=== PATIENT | female | born 1990 | race Caucasian/White ===

== ENCOUNTER 2018-09-16 14:27 | Emergency (ER) | payer OTHER, SELFPAY ==
[2018-09-16 14:36] VITALS: BP 112/72; PULSE 88; RESP 17; TEMP 36.1; O2SAT 94
--- NOTE | 2018-09-16 16:08 | ED.PSYCH ---
HPI - Psych General Chief Complaint: Psychiatric Symptoms Stated Complaint: doctor sent for mental health Time Seen by Provider: 09/16/18 16:05 Source: patient, family () and old records reviewed Mode of arrival: ambulatory Limitations: no limitations History of Present Illness HPI Narrative: This is a 28-year-old female who comes to the emergency department with complaint of depression and suicidal ideation. Patient states she has had depression with her 2 prior pregnancies, she is months with her 3rd . She had C-sections with L3. With the prior to she was on Zoloft which was helpful. She has not been taking Zoloft. Patient states she noticed the symptoms started about 3 weeks ago slowly worsening and then realized that that was what was happening to her. She has had thoughts of killing herself. Her has a firearm in the and she thought about shooting herself. He has disassembled the firearm which she states she is not capable of her is stumbling. Patient states she does not have any thoughts or wish to harm others including her children, or . Patient states that she thought about restarting the Zoloft but was not sure if there is any issues or contraindications. They did try to get a same-day appointment today on the [facility] but were unsuccessful. Patient has only been sleeping about 4 hours nightly. She states she tends to get insomnia with her depression. She states otherwise she was getting okay sleep before. She is breast feeding and states that this has been going well. She denies other medical issues. She denies surgeries other than her . She followed with her primary care before for her depression. She never has been hospitalized, she has not seen a counselor in the past. She is here attempt to get assistance. She does not feel that she needs hospitalization, she feels safe when she is present with her . Her states that he can have the farm removed from the home as well. Related Data Home Medications Medication Instructions Recorded Confirmed No Known Home Medications 09/16/18 09/16/18 Allergies Allergy/AdvReac Type Severity Reaction Status Date / Time Penicillins Allergy Anaphylaxis Verified 09/16/18 14:36 Review of Systems Review of Systems ROS Unobtainable: All systems reviewed & are unremarkable except as noted in HPI and below Constitutional Denies chills, Denies fever(s), Denies lethargy and Denies weakness Cardiovascular Denies chest pain and Denies dyspnea Respiratory Denies dyspnea Gastrointestinal Gastrointestinal: Denies abdominal pain, Denies change in bowel habits, Denies diarrhea, Denies nausea and Denies vomiting Integumentary/Breasts Denies rash Neurologic Reports behavioral changes, Denies confusion and Denies weakness Psychiatric Reports as per HPI, Reports abnormal sleep pattern, Reports behavioral changes, Denies confusion, Reports depression, Denies panic attacks, Denies paranoia, Denies visual hallucinations, Denies hallucinations, Denies homicidal ideation and Reports suicidal ideation [facility] Medical History (Updated 09/16/18 @ 17:59 by Joleen Ramos DO) depression (Chronic) Single delivery by (Chronic) Social History marital status: household members: spouse and children lives independently: Yes caregiver/support person: No firearms in home: Yes Smoking Status: Never smoker Social History marital status: household members: spouse and children lives independently: Yes caregiver/support person: No firearms in home: Yes Smoking Status: Never smoker Exam Narrative Exam Narrative: GENERAL: Alert and oriented x three, well-nourished, well-appearing female in no acute distress. HEENT: Head normocephalic, atraumatic, EOMI, pupils reactive, face symmetric, moist mucous membranes NECK: Supple, full range of motion CARDIOVASCULAR: Regular rate and rhythm without murmurs, rubs or gallops. RESPIRATORY: Breath sounds equal bilaterally, no wheezes rales or rhonchi. ABDOMEN: Soft, nontender. Normoactive bowel sounds all 4 quadrants. No guarding or rebound, rigidity, no mass : No CVA tenderness EXTREMITIES: Normal range of motion, no clubbing or edema. Neurovascularly intact NEUROLOGICAL: Cranial nerves II through XII grossly intact. Moving all extremities SKIN: Warm, dry, no petechiae, no rashes or lesions. PSYCH: Depression, denies suicidal intent but positive for suicidal ideation, denies homicidal intent or ideation. Denies hallucinations. Initial Vital Signs Initial Vital Signs: Vital Signs Temperature 96.9 F L 09/16/18 14:36 Pulse Rate 88 09/16/18 14:36 Respiratory Rate 17 09/16/18 14:36 Blood Pressure 112/72 09/16/18 14:36 Pulse Oximetry 94 09/16/18 14:36 Course Orders Ordered: ED Orders 09/16/18 16:00 Urine Drug Screen, Rapid Stat 09/16/18 16:36 Complete Blood Count AUTO DIFF Stat Comprehensive Metabolic Panel Stat Ethanol (ETOH) Stat Thyroid Stimulating Hormone Stat Vital Signs - 8 hr 09/16/18 14:36 09/16/18 18:11 Temperature 96.9 F L Pulse Rate 88 84 Respiratory Rate 17 16 Blood Pressure 112/72 Blood Pressure [Right Arm] 111/73 Pulse Oximetry 94 99 MDM - Psych Lab Data Attestation: I reviewed the patient's lab results. Result diagrams: 09/16/18 16:36 09/16/18 16:36 Lab Results 09/16/18 09/16/18 09/16/18 Range/Units 16:00 16:36 16:36 WBC 4.8 (4.5-11.0) X10^3/uL RBC 4.71 (4.0-5.2) X10^6/uL Hgb 11.8 L (12.0-16.0) g/dL Hct 36.1 (36-46) % MCV 76.7 L (80-100) fL MCH 25.1 L (26-34) PG MCHC 32.7 (30-36) % RDW 16.7 H (11.6-14.8) % Plt Count 161 (150-400) X10^3/uL Neut % (Auto) 53.6 (50-75) % Lymph % (Auto) 35.5 (25-40) % [place] % (Auto) 8.0 (3-14) % Eos % (Auto) 2.3 (2-4) % Baso % (Auto) 0.6 (0-2) % Neut # (Auto) 2600 (2116-5958) /uL Lymph # (Auto) 1700 (3931-3971) /uL [place] # (Auto) 400 (0-900) /uL Eos # (Auto) 100 (0-450) /uL Baso # (Auto) 0 (0-100) /uL Sodium 142 (137-145) mmol/L Potassium 4.1 (3.4-5.1) mmol/L Chloride 108 H (98-107) mmol/L Carbon Dioxide 26 (22-32) mmol/L BUN 13 (7-17) mg/dL Creatinine 0.70 (0.52-1.04) mg/dL Estimated GFR > 60.0 (>60) mL/min BUN/Creatinine Ratio 18.6 (6-22) Glucose 70 (70-100) mg/dL Calcium 8.7 (8.4-10.2) mg/dL Total Bilirubin 0.4 (0.2-1.3) mg/dL AST 36 (14-36) IU/L ALT 34 (9-52) IU/L Alkaline Phosphatase 81 (38-126) U/L Total Protein 7.0 (6.3-8.2) g/dL Albumin 4.0 (3.5-5.0) g/dL Globulin 3.0 (1.7-4.1) g/dL Albumin/Globulin Ratio 1.3 (1.0-2.8) TSH (0.47-4.68) uIU/mL Urine Opiates Screen Negative (Negative) Ur Oxycodone Screen Negative (Negative) Urine Methadone Screen Negative (Negative) Ur Barbiturates Screen Negative (Negative) U Tricyclic Antidepress Negative (Negative) Ur Phencyclidine Scrn Negative (Negative) Ur Amphetamines Screen Negative (Negative) U Methamphetamines Scrn Negative (Negative) Ur MDMA Scrn (Ecstasy) Negative (Negative) U Benzodiazepines Scrn Negative (Negative) Urine Cocaine Screen Negative (Negative) U Marijuana (THC) Screen Negative (Negative) Ethyl Alcohol < 10 mg/dL 09/16/18 Range/Units 16:36 WBC (4.5-11.0) X10^3/uL RBC (4.0-5.2) X10^6/uL Hgb (12.0-16.0) g/dL Hct (36-46) % MCV (80-100) fL MCH (26-34) PG MCHC (30-36) % RDW (11.6-14.8) % Plt Count (150-400) X10^3/uL Neut % (Auto) (50-75) % Lymph % (Auto) (25-40) % [place] % (Auto) (3-14) % Eos % (Auto) (2-4) % Baso % (Auto) (0-2) % Neut # (Auto) (7856-1276) /uL Lymph # (Auto) (6597-6671) /uL [place] # (Auto) (0-900) /uL Eos # (Auto) (0-450) /uL Baso # (Auto) (0-100) /uL Sodium (137-145) mmol/L Potassium (3.4-5.1) mmol/L Chloride (98-107) mmol/L Carbon Dioxide (22-32) mmol/L BUN (7-17) mg/dL Creatinine (0.52-1.04) mg/dL Estimated GFR (>60) mL/min BUN/Creatinine Ratio (6-22) Glucose (70-100) mg/dL Calcium (8.4-10.2) mg/dL Total Bilirubin (0.2-1.3) mg/dL AST (14-36) IU/L ALT (9-52) IU/L Alkaline Phosphatase (38-126) U/L Total Protein (6.3-8.2) g/dL Albumin (3.5-5.0) g/dL Globulin (1.7-4.1) g/dL Albumin/Globulin Ratio (1.0-2.8) TSH 2.63 (0.47-4.68) uIU/mL Urine Opiates Screen (Negative) Ur Oxycodone Screen (Negative) Urine Methadone Screen (Negative) Ur Barbiturates Screen (Negative) U Tricyclic Antidepress (Negative) Ur Phencyclidine Scrn (Negative) Ur Amphetamines Screen (Negative) U Methamphetamines Scrn (Negative) Ur MDMA Scrn (Ecstasy) (Negative) U Benzodiazepines Scrn (Negative) Urine Cocaine Screen (Negative) U Marijuana (THC) Screen (Negative) Ethyl Alcohol mg/dL Point of Care Testing Test Results Negative Urine Dip Bedside Urine Glucose Negative Bedside Urine Bilirubin - Negative Bedside Urine Ketone - Negative Urine Specific [place] 1.030 Bedside Urine Occult Blood - Negative Bedside Urine pH 6 Bedside Urine Protein +/- 15 Bedside Urine Urobilinogen - Negative Bedside Urine Nitrite - Negative Bedside Urine Leukocytes - Negative Esterase MDM Narrative Medical decision making narrative: Patient is feeling better after spending time in the department. She is not having any current suicidal ideation or homicidal and feels safe to return home. She contracts for safety. also feels comfortable with her returning home. He will have the firearm removed tonight to another location outside the home. Patient set up appointment with [facility] at 10:30am tomorrow. She has plenty of zoloft at home and will start today at her normal dose, she states that she did not have to titrate up. Discharge Plan Departure Patient Disposition: Home Clinical Impression: Depression, , Suicidal ideation Instructions: DI for Depression Activity Restrictions/Additional Instructions: Follow-up in the next 24 hours either with your primary care or with [facility]. Appointment is at 1030am, they will contact you tomorrow. Start your Zoloft at your regular dosage, take 1 tablet daily. If you feel unsafe, if you feel that you are danger to herself, others if you are having recurrent thoughts of hurting herself or intent of hurting herself, hallucinations, worsening symptoms call 911 in or return immediately to the ER. If you're feeling suicidal or having suicidal thoughts, contact the suicide hotline, this is also the number for [facility] and they can do a next day appointment as well as have additional resources for mental health. . Prescriptions: No Action No Known Home Medications RF: 0 Referrals: Kannan Ordoñez MD [Physician] -
--- NOTE | 2018-09-16 16:19 | ED_ITS ---
HPI - Psych General Chief Complaint: Psychiatric Symptoms Stated Complaint: doctor sent for mental health Time Seen by Provider: 09/16/18 16:05 Source: patient, family () and old records reviewed Mode of arrival: ambulatory Limitations: no limitations History of Present Illness HPI Narrative: This is a 28-year-old female who comes to the emergency department with complaint of depression and suicidal ideation. Patient states she has had depression with her 2 prior pregnancies, she is months with her 3rd . She had C-sections with L3. With the prior to she was on Zoloft which was helpful. She has not been taking Zoloft. Patient states she noticed the symptoms started about 3 weeks ago slowly worsening and then realized that that was what was happening to her. She has had thoughts of killing herself. Her has a firearm in the and she thought about shooting herself. He has disassembled the firearm which she states she is not capable of her is stumbling. Patient states she does not have any thoughts or wish to harm others including her children, or . Patient states that she thought about restarting the Zoloft but was not sure if there is any issues or contraindications. They did try to get a same-day appointment today on the [facility] but were unsuccessful. Patient has only been sleeping about 4 hours nightly. She states she tends to get insomnia with her depression. She states otherwise she was getting okay sleep before. She is breast feeding and states that this has been going well. She denies other medical issues. She denies surgeries other than her . She followed with her primary care before for her depression. She never has been hospitalized, she has not seen a counselor in the past. She is here attempt to get assistance. She does not feel that she needs hospitalization, she feels safe when she is present with her . Her states that he can have the farm removed from the home as well. Related Data Home Medications Medication Instructions Recorded Confirmed No Known Home Medications 09/16/18 09/16/18 Allergies Allergy/AdvReac Type Severity Reaction Status Date / Time Penicillins Allergy Anaphylaxis Verified 09/16/18 14:36 Review of Systems Review of Systems ROS Unobtainable: All systems reviewed & are unremarkable except as noted in HPI and below Constitutional Denies chills, Denies fever(s), Denies lethargy and Denies weakness Cardiovascular Denies chest pain and Denies dyspnea Respiratory Denies dyspnea Gastrointestinal Gastrointestinal: Denies abdominal pain, Denies change in bowel habits, Denies diarrhea, Denies nausea and Denies vomiting Integumentary/Breasts Denies rash Neurologic Reports behavioral changes, Denies confusion and Denies weakness Psychiatric Reports as per HPI, Reports abnormal sleep pattern, Reports behavioral changes, Denies confusion, Reports depression, Denies panic attacks, Denies paranoia, Denies visual hallucinations, Denies hallucinations, Denies homicidal ideation and Reports suicidal ideation [facility] Medical History (Updated 09/16/18 @ 17:59 by Joleen Ramos DO) depression (Chronic) Single delivery by (Chronic) Social History marital status: household members: spouse and children lives independently: Yes caregiver/support person: No firearms in home: Yes Smoking Status: Never smoker Social History marital status: household members: spouse and children lives independently: Yes caregiver/support person: No firearms in home: Yes Smoking Status: Never smoker Exam Narrative Exam Narrative: GENERAL: Alert and oriented x three, well-nourished, well- appearing female in no acute distress. HEENT: Head normocephalic, atraumatic, EOMI, pupils reactive, face symmetric, m oist mucous membranes NECK: Supple, full range of motion CARDIOVASCULAR: Regular rate and rhythm without murmurs, rubs or gallops. RESPIRATORY: Breath sounds equal bilaterally, no wheezes rales or rhonchi. ABDOMEN: Soft, nontender. Normoactive bowel sounds all 4 quadrants. No guarding or rebound, rigidity, no mass : No CVA tenderness EXTREMITIES: Normal range of motion, no clubbing or edema. Neurovascularly intact NEUROLOGICAL: Cranial nerves II through XII grossly intact. Moving all extre mities SKIN: Warm, dry, no petechiae, no rashes or lesions. PSYCH: Depression, denies suicidal intent but positive for suicidal ideation, denies homicidal intent or ideation. Denies hallucinations. Initial Vital Signs Initial Vital Signs: Vital Signs Temperature 96.9 F L 09/16/18 14:36 Pulse Rate 88 09/16/18 14:36 Respiratory Rate 17 09/16/18 14:36 Blood Pressure 112/72 09/16/18 14:36 Pulse Oximetry 94 09/16/18 14:36 Course Orders Ordered: ED Orders 09/16/18 16:00 Urine Drug Screen, Rapid Stat 09/16/18 16:36 Complete Blood Count AUTO DIFF Stat Comprehensive Metabolic Panel Stat Ethanol (ETOH) Stat Thyroid Stimulating Hormone Stat Vital Signs - 8 hr 09/16/18 14:36 09/16/18 18:11 Temperature 96.9 F L Pulse Rate 88 84 Respiratory Rate 17 16 Blood Pressure 112/72 Blood Pressure [Right Arm] 111/73 Pulse Oximetry 94 99 MDM - Psych Lab Data Attestation: I reviewed the patient's lab results. Result diagrams: 09/16/18 16:36 09/16/18 16:36 Lab Results 09/16/18 09/16/18 09/16/18 Range/Units 16:00 16:36 16:36 WBC 4.8 (4.5-11.0) X10^3/uL RBC 4.71 (4.0-5.2) X10^6/uL Hgb 11.8 L (12.0-16.0) g/dL Hct 36.1 (36-46) % MCV 76.7 L (80-100) fL MCH 25.1 L (26-34) PG MCHC 32.7 (30-36) % RDW 16.7 H (11.6-14.8) % Plt Count 161 (150-400) X10^3/uL Neut % (Auto) 53.6 (50-75) % Lymph % (Auto) 35.5 (25-40) % [place] % (Auto) 8.0 (3-14) % Eos % (Auto) 2.3 (2-4) % Baso % (Auto) 0.6 (0-2) % Neut # (Auto) 2600 (8635-2240) /uL Lymph # (Auto) 1700 (3580-0666) /uL [place] # (Auto) 400 (0-900) /uL Eos # (Auto) 100 (0-450) /uL Baso # (Auto) 0 (0-100) /uL Sodium 142 (137-145) mmol/L Potassium 4.1 (3.4-5.1) mmol/L Chloride 108 H (98-107) mmol/L Carbon Dioxide 26 (22-32) mmol/L BUN 13 (7-17) mg/dL Creatinine 0.70 (0.52-1.04) mg/dL Estimated GFR > 60.0 (>60) mL/min BUN/Creatinine Ratio 18.6 (6-22) Glucose 70 (70-100) mg/dL Calcium 8.7 (8.4-10.2) mg/dL Total Bilirubin 0.4 (0.2-1.3) mg/dL AST 36 (14-36) IU/L ALT 34 (9-52) IU/L Alkaline Phosphatase 81 (38-126) U/L Total Protein 7.0 (6.3-8.2) g/dL Albumin 4.0 (3.5-5.0) g/dL Globulin 3.0 (1.7-4.1) g/dL Albumin/Globulin Ratio 1.3 (1.0-2.8) TSH (0.47-4.68) uIU/mL Urine Opiates Screen Negative (Negative) Ur Oxycodone Screen Negative (Negative) Urine Methadone Screen Negative (Negative) Ur Barbiturates Screen Negative (Negative) U Tricyclic Antidepress Negative (Negative) Ur Phencyclidine Scrn Negative (Negative) Ur Amphetamines Screen Negative (Negative) U Methamphetamines Scrn Negative (Negative) Ur MDMA Scrn (Ecstasy) Negative (Negative) U Benzodiazepines Scrn Negative (Negative) Urine Cocaine Screen Negative (Negative) U Marijuana (THC) Screen Negative (Negative) Ethyl Alcohol < 10 mg/dL 09/16/18 Range/Units 16:36 WBC (4.5-11.0) X10^3/uL RBC (4.0-5.2) X10^6/uL Hgb (12.0-16.0) g/dL Hct (36-46) % MCV (80-100) fL MCH (26-34) PG MCHC (30-36) % RDW (11.6-14.8) % Plt Count (150-400) X10^3/uL Neut % (Auto) (50-75) % Lymph % (Auto) (25-40) % [place] % (Auto) (3-14) % Eos % (Auto) (2-4) % Baso % (Auto) (0-2) % Neut # (Auto) (7420-2165) /uL Lymph # (Auto) (4516-1957) /uL [place] # (Auto) (0-900) /uL Eos # (Auto) (0-450) /uL Baso # (Auto) (0-100) /uL Sodium (137-145) mmol/L Potassium (3.4-5.1) mmol/L Chloride (98-107) mmol/L Carbon Dioxide (22-32) mmol/L BUN (7-17) mg/dL Creatinine (0.52-1.04) mg/dL Estimated GFR (>60) mL/min BUN/Creatinine Ratio (6-22) Glucose (70-100) mg/dL Calcium (8.4-10.2) mg/dL Total Bilirubin (0.2-1.3) mg/dL AST (14-36) IU/L ALT (9-52) IU/L Alkaline Phosphatase (38-126) U/L Total Protein (6.3-8.2) g/dL Albumin (3.5-5.0) g/dL Globulin (1.7-4.1) g/dL Albumin/Globulin Ratio (1.0-2.8) TSH 2.63 (0.47-4.68) uIU/mL Urine Opiates Screen (Negative) Ur Oxycodone Screen (Negative) Urine Methadone Screen (Negative) Ur Barbiturates Screen (Negative) U Tricyclic Antidepress (Negative) Ur Phencyclidine Scrn (Negative) Ur Amphetamines Screen (Negative) U Methamphetamines Scrn (Negative) Ur MDMA Scrn (Ecstasy) (Negative) U Benzodiazepines Scrn (Negative) Urine Cocaine Screen (Negative) U Marijuana (THC) Screen (Negative) Ethyl Alcohol mg/dL Point of Care Testing Test Results Negative Urine Dip Bedside Urine Glucose Negative Bedside Urine Bilirubin - Negative Bedside Urine Ketone - Negative Urine Specific [place] 1.030 Bedside Urine Occult Blood - Negative Bedside Urine pH 6 Bedside Urine Protein +/- 15 Bedside Urine Urobilinogen - Negative Bedside Urine Nitrite - Negative Bedside Urine Leukocytes - Negative Esterase MDM Narrative Medical decision making narrative: Patient is feeling better after spending time in the department. She is not having any current suicidal ideation or homicidal and feels safe to return home. She contracts for safety. also feels comfortable with her returning home. He will have the firearm removed tonight to another location outside the home. Patient set up appointment with [facility] at 10:30am tomorrow. She has plenty of zoloft at home and will start today at her normal dose, she states that she did not have to titrate up. Discharge Plan Departure Patient Disposition: Home Clinical Impression: Depression, , Suicidal ideation Instructions: DI for Depression Activity Restrictions/Additional Instructions: Follow-up in the next 24 hours either with your primary care or with [facility]. Appointment is at 1030am, they will contact you tomorrow. Start your Zoloft at your regular dosage, take 1 tablet daily. If you feel unsafe, if you feel that you are danger to herself, others if you are having recurrent thoughts of hurting herself or intent of hurting herself, hallucinations, worsening symptoms call 911 in or return immediately to the ER. If you're feeling suicidal or having suicidal thoughts, contact the suicide hotline, this is also the number for [facility] and they can do a next day appointment as well as have additional resources for mental health. . Prescriptions: No Action No Known Home Medications RF: 0 Referrals: Kannan Ordoñez MD [Physician] -
[2018-09-16 16:26] LABS: Urine Amphetamines Negative (Negative); Urine Barbiturates Negative (Negative); Urine Benzodiazepines Negative (Negative); Urine Cocaine Negative (Negative); Urine MDMA Negative (Negative); Urine Methadone Negative (Negative); Urine Methamphetamines Negative (Negative); Urine Morphine/Opi cutoff 2000 Negative (Negative); Urine Oxycodone Negative (Negative); Urine Phencyclidine Negative (Negative); Urine Tetrahydrocannabinol Negative (Negative); Urine Tricyclic Antidepressant Negative (Negative)
--- NOTE | 2018-09-16 16:39 | PC.NURSE ---
Pt is going to use breast pump.
[2018-09-16 16:46] LABS: Add Manual Diff / Slide Review NO; Basophils Absolute Auto 0 /uL (0-100); Basophils Percent Auto 0.6 % (0-2); Eosinophils Absolute Auto 100 /uL (0-450); Eosinophils Percent Auto 2.3 % (2-4); Hematocrit 36.1 % (36-46); Hemoglobin 11.8 g/dL (12.0-16.0); Lymphocytes Absolute Auto 1700 /uL (1100-4500); Lymphocytes Percent Auto 35.5 % (25-40); Mean Corpuscular HGB Conc 32.7 % (30-36); Mean Corpuscular Hemoglobin 25.1 PG (26-34); Mean Corpuscular Volume 76.7 fL (80-100); Monocytes Absolute Auto 400 /uL (0-900); Neutrophils Absolute Auto 2600 /uL (1500-7000); Neutrophils Percent Auto 53.6 % (50-75); Platelet Count 161 X10^3/uL (150-400); Red Blood Cell Count 4.71 X10^6/uL (4.0-5.2); Red Cell Distribution Width 16.7 % (11.6-14.8); White Blood Cell Count 4.8 X10^3/uL (4.5-11.0)
[2018-09-16 17:00] LABS: Alanine Aminotransferase 34 IU/L (9-52); Albumin Globulin Ratio 1.3 (1.0-2.8); Alkaline Phosphatase 81 U/L (38-126); Aspartate Aminotransferase 36 IU/L (14-36); BUN Creatinine Ratio 18.6 (6-22); Bilirubin Total 0.4 mg/dL (0.2-1.3); Blood Urea Nitrogen 13 mg/dL (7-17); Calcium 8.7 mg/dL (8.4-10.2); Carbon Dioxide 26 mmol/L (22-32); Chloride 108 mmol/L (98-107); Estimated Glomerular Filt Rate > 60.0 mL/min (>60); Ethanol (ETOH) < 10 mg/dL; Glucose 70 mg/dL (70-100); HEMOLYSIS < 15 (0-50); Potassium 4.1 mmol/L (3.4-5.1); Sodium 142 mmol/L (137-145)
[2018-09-16 17:35] LABS: Thyroid Stimulating Hormone 2.63 uIU/mL (0.47-4.68)
[2018-09-16 18:11] VITALS: BP 111/73; PULSE 84; RESP 16; O2SAT 99
--- NOTE | 2018-09-16 18:17 | PC.NURSE ---
[facility] appointment set-up for 10:30 am tomorrow.
== END 2018-09-16 18:35 | disposition home or self-care (01) ==
PROVIDERS: Emergency Provider Emergency Medicine
DX: F32.89 Other specified depressive episodes (principal); R45.851 Suicidal ideations
CPT/HCPCS: 36415; 80053; 80305; 80320; 81003; 81025; 84443; 85025; 99282; 99283

== ENCOUNTER 2020-06-14 19:48 | Emergency (ER) | payer OTHER, SELFPAY ==
[2020-06-14] VITALS (9 sets, daily range): BP systolic 127–140; BP diastolic 69–83; PULSE 85–107; RESP 15–19; TEMP 36.6; O2SAT 100; BMI 38.9
--- NOTE | 2020-06-14 19:58 | DI.RAD.S_ITS ---
PROCEDURE: XR CHEST 1V INDICATIONS: chest pain TECHNIQUE: One view of the chest was acquired. COMPARISON: None. FINDINGS: Surgical changes and devices: None. Lungs and pleura: There are few linear opacities in the lung bases likely representing atelectasis. No pleural effusions or pneumothorax. Mediastinum: Mediastinal contours appear normal. Heart size is normal. Bones and chest wall: No suspicious bony lesions. Overlying soft tissues appear unremarkable. IMPRESSION: 1. Linear opacities in lung bases likely represent atelectasis. No definite consolidation. Dictated by: Derrell Chin M.D. on 06/14/2020 at 20:54 Approved by: Derrell Chin M.D. on 06/14/2020 at 20:54
[2020-06-14 20:28] LABS: Add Manual Diff / Slide Review NO; Basophils Absolute Auto 100 /uL (0-100); Basophils Percent Auto 0.7 % (0-2); Eosinophils Absolute Auto 100 /uL (0-450); Eosinophils Percent Auto 1.5 % (2-4); Hematocrit 37.8 % (36-46); Hemoglobin 12.6 g/dL (12.0-16.0); Lymphocytes Absolute Auto 2300 /uL (1100-4500); Lymphocytes Percent Auto 30.5 % (25-40); Mean Corpuscular HGB Conc 33.2 % (30-36); Mean Corpuscular Hemoglobin 27.2 PG (26-34); Mean Corpuscular Volume 81.8 fL (80-100); Monocytes Absolute Auto 500 /uL (0-900); Monocytes Percent Auto 6.8 % (3-14); Neutrophils Absolute Auto 4500 /uL (1500-7000); Neutrophils Percent Auto 60.5 % (50-75); Platelet Count 197 X10^3/uL (150-400); Red Blood Cell Count 4.63 X10^6/uL (4.0-5.2); Red Cell Distribution Width 13.4 % (11.6-14.8); White Blood Cell Count 7.4 X10^3/uL (4.5-11.0)
[2020-06-14 20:29] LABS: INR 0.9 (0.9-1.3); Prothrombin Time 10.6 SECONDS (10.1-12.7)
[2020-06-14 20:31] LABS: PTT Partial Thromboplastin Tim 33 SECONDS (26.4-36.2)
[2020-06-14 20:33] LABS: Alanine Aminotransferase 20 IU/L (<35); Albumin 4.3 g/dL (3.5-5.0); Albumin Globulin Ratio 1.5 (1.0-2.8); Alkaline Phosphatase 58 U/L (38-126); Aspartate Aminotransferase 26 IU/L (14-36); BUN Creatinine Ratio 15.9 (6-22); Bilirubin Total 0.2 mg/dL (0.2-1.3); Blood Urea Nitrogen 11 mg/dL (7-17); Calcium 9.4 mg/dL (8.4-10.2); Carbon Dioxide 24 mmol/L (22-32); Chloride 105 mmol/L (98-107); Creatine Kinase 133 U/L (30-135); Estimated Glomerular Filt Rate > 60.0 mL/min (>60); Globulin 2.8 g/dL (1.7-4.1); Glucose 87 mg/dL (70-100); HEMOLYSIS < 15 (0-50); Lipase 118 U/L (23-300); Potassium 3.8 mmol/L (3.4-5.1); Sodium 138 mmol/L (137-145); Total Protein 7.1 g/dL (6.3-8.2)
--- NOTE | 2020-06-14 20:38 | ED_ITS ---
HPI - Chest Pain General Chief Complaint: Chest Pain Stated Complaint: chest pain, dizziness Time Seen by Provider: 06/14/20 20:27 Source: patient Mode of arrival: Ambulatory Limitations: no limitations History of Present Illness HPI narrative: The patient complains of dizziness, onset Thursday. The dizziness has been intermittent. She denies ear pain, or pressure. She has no sinus issues, no sore throat. She denies headache, she has no sore throat. She has no fever. She is now experiencing episodes of central sternal chest pain. She has no cardiac or respiratory history. She is a nonsmoker. She has no history of asthma or allergies. She has no nausea vomiting associated with the symptoms. She is not . She is on no prescription medications. She has no chronic medical problems. There is a family history of hypertension. Related Data Previous Rx's Medication Instructions Recorded meclizine 25 mg PO Q6H PRN #20 tab 06/14/20 Allergies Allergy/AdvReac Type Severity Reaction Status Date / Time Penicillins Allergy Anaphylaxis Verified 06/14/20 19:55 Review of Systems Constitutional Constitutional: Denies chills, Denies fever(s) and Denies weakness Eyes Eyes: Denies change in vision ENT Ears, Nose, Mouth, and Throat: Denies change in voice, Denies vertigo, Reports dizziness, Denies neck pain and Denies sore throat Cardiovascular Cardiovascular: Denies chest pain, Denies syncope, Denies irregular heart rhythm, Denies lightheadedness, Denies dyspnea and Denies orthopnea Respiratory Respiratory: Denies cough, Denies dyspnea and Denies wheezing Gastrointestinal Gastrointestinal: Denies abdominal pain, Denies change in bowel habits, Denies diarrhea, Denies nausea and Denies vomiting Genitourinary Genitourinary: Denies dysuria Genitourinary: Denies dysuria Musculoskeletal Musculoskeletal: Denies back pain and Denies neck pain Integumentary/Breasts Skin/Breast: Denies lesions and Denies rash Neurologic Neurologic: Denies confusion, Denies vertigo, Reports dizziness, Denies syncope and Denies weakness Psychiatric Psychiatric: Denies anxiety and Denies confusion Allergic/Immunologic Allergic/Immunologic: Denies wheezing Patient History Medical History depression Single delivery by Social History marital status: household members: spouse and children lives independently: Yes caregiver/support person: No firearms in home: Yes firearms unloaded and locked: No (disassembled) Smoking Status: Never smoker Smoking Status: Never smoker alcohol intake frequency: holidays/special occasions only Substance Use Type: does not use Exam Initial Vital Signs Initial Vital Signs: Vital Signs Temperature 97.9 F 06/14/20 19:52 Pulse Rate 93 H 06/14/20 19:52 Respiratory Rate 15 06/14/20 19:52 Blood Pressure 132/76 06/14/20 19:52 Pulse Oximetry 100 06/14/20 19:52 Const General: cooperative and well developed Nutritional Appearance: well nourished HENMT Head: normocephalic and atraumatic Ears: TM's normal bilaterally and EAC abnormal Mouth: oral mucosae normal and moist mucous membranes Throat: posterior oropharynx normal Eyes Conjunctivae: conjunctivae normal Neck Neck: No lymphadenopathy and No JVD Chest Chest: normal palpation of entire chest wall Resp Effort & Inspection: normal respiratory effort and able to speak in complete sentences Auscultation: clear to auscultation bilaterally, no rales, no rhonchi and no wheezes Cardio Rate: regular rate Rhythm: regular rhythm Heart Sounds: S1 normal, S2 normal, no click, no gallops, no murmurs and no rubs Pulses: normal peripheral pulses GI Inspection: non-distended Palpation: soft, no hepatosplenomegaly, No guarding, No pulsatile mass and No tender Auscultation: normal bowel sounds Back/Spine/Pelvis Back: No CVA tenderness Skin General: no rashes or lesions noted Neuro General: patient alert, patient oriented x3, gait normal, no focal motor deficits and [place] (Positive to the right) Speech: speech normal Extrem General: normal to inspection, no pedal edema and no calf tenderness Psych Appearance: well kempt Mental Status: mental status grossly normal Attitude: cooperative Thought Content: normal and suicidality Judgment: judgment good Course Course Course Narrative: The patient has received meclizine, dizziness has resolved. She is currently asymptomatic, feeling better. She will be discharged on meclizine for labor and itis. Orders Ordered: ED Orders 06/14/20 19:58 XR chest 1V Stat EKG-12 Lead Stat 06/14/20 20:10 Complete Blood Count AUTO DIFF Stat Comprehensive Metabolic Panel Stat Lipase Stat Partial Thromboplastin Time Stat Prothrombin Time INR Stat Troponin & CK Cardiac Panel Stat Discontinued Medications Meclizine HCl (Meclizine Hcl 12.5 Mg Tablet) 50 mg PO NOW ONE Stop: 06/14/20 20:39 Last Admin: 06/14/20 20:51 Dose: 50 mg Documented by: PREM Vital Signs Vital signs: Vital Signs - 8 hr 06/14/20 19:52 06/14/20 20:01 06/14/20 20:30 Temperature 97.9 F Pulse Rate 93 H 87 87 Respiratory Rate 15 18 Blood Pressure 132/76 Pulse Oximetry 100 100 100 06/14/20 20:35 06/14/20 20:53 06/14/20 21:00 Temperature Pulse Rate 92 H 107 H 87 Respiratory Rate 19 17 16 Blood Pressure 140/78 133/69 134/83 Pulse Oximetry 100 100 100 06/14/20 21:30 06/14/20 22:00 06/14/20 22:30 Temperature Pulse Rate 85 98 H 89 Respiratory Rate 16 19 19 Blood Pressure 129/77 129/70 127/70 Pulse Oximetry 100 100 100 MDM - Chest Pain Lab Data Result diagrams: 06/14/20 20:10 06/14/20 20:10 Labs: Lab Results 06/14/20 06/14/20 06/14/20 Range/Units 20:10 20:10 20:10 WBC 7.4 (4.5-11.0) X10^3/uL RBC 4.63 (4.0-5.2) X10^6/uL Hgb 12.6 (12.0-16.0) g/dL Hct 37.8 (36-46) % MCV 81.8 (80-100) fL MCH 27.2 (26-34) PG MCHC 33.2 (30-36) % RDW 13.4 (11.6-14.8) % Plt Count 197 (150-400) X10^3/uL Neut % (Auto) 60.5 (50-75) % Lymph % (Auto) 30.5 (25-40) % [place] % (Auto) 6.8 (3-14) % Eos % (Auto) 1.5 L (2-4) % Baso % (Auto) 0.7 (0-2) % Neut # (Auto) 4500 (7071-9085) /uL Lymph # (Auto) 2300 (7235-9733) /uL [place] # (Auto) 500 (0-900) /uL Eos # (Auto) 100 (0-450) /uL Baso # (Auto) 100 (0-100) /uL PT 10.6 (10.1-12.7) SECONDS INR 0.9 (0.9-1.3) APTT 33 (26.4-36.2) SECONDS Sodium 138 (137-145) mmol/L Potassium 3.8 (3.4-5.1) mmol/L Chloride 105 (98-107) mmol/L Carbon Dioxide 24 (22-32) mmol/L BUN 11 (7-17) mg/dL Creatinine 0.69 (0.52-1.04) mg/dL Estimated GFR > 60.0 (>60) mL/min BUN/Creatinine Ratio 15.9 (6-22) Glucose 87 (70-100) mg/dL Calcium 9.4 (8.4-10.2) mg/dL Total Bilirubin 0.2 (0.2-1.3) mg/dL AST 26 (14-36) IU/L ALT 20 (<35) IU/L Alkaline Phosphatase 58 (38-126) U/L Total Creatine Kinase 133 (30-135) U/L CK-MB (CK-2) 0.41 (<2.37) ng/mL CK-MB (CK-2) Rel Index 0.3 L (1.5-5.0) % Troponin I < 0.012 (0.01-0.034) ng/mL Total Protein 7.1 (6.3-8.2) g/dL Albumin 4.3 (3.5-5.0) g/dL Globulin 2.8 (1.7-4.1) g/dL Albumin/Globulin Ratio 1.5 (1.0-2.8) Lipase 118 (23-300) U/L Imaging Data Chest x-ray: Radiologist's Impression: [address] [id number] ReportSigned Patient: Briana Glass FMR#: [id number]: [id number]:[id number]/Sex: 29 / FDate of Service: 06/14/20Loc: EDAccession Number: [id number] Procedure: XR chest 1V Ordering Provider: Diego Sylvester MD PROCEDURE: XR CHEST 1V INDICATIONS: chest pain TECHNIQUE: One view of the chest was acquired. COMPARISON: None. FINDINGS: Surgical changes and devices: None. Lungs and pleura: There are few linear opacities in the lung bases likely representing atelectasis. No pleural effusions or pneumothorax. Mediastinum: Mediastinal contours appear normal. Heart size is normal. Bones and chest wall: No suspicious bony lesions. Overlying soft tissues appear unremarkable. IMPRESSION: 1. Linear opacities in lung bases likely represent atelectasis. No definite consolidation. Dictated by: Derrell Chin M.D. on 06/14/2020 at 20:54 Approved by: Derrell Chin M.D. on 06/14/2020 at 20:54 ECG Data Attestation: I personally reviewed and interpreted this ECG as follows: (Normal sinus rhythm rate 90 beats per minute. No ectopy. Normal intervals. No acute ST T wave changes.) Discharge Plan Departure Patient Disposition: Home Clinical Impression: Labyrinthitis of right ear Instructions: Labyrinthitis Activity Restrictions/Additional Instructions: Meclizine every 6 hours as needed for dizziness. Be sure drinking plenty of water and staying well hydrated when using this medication. If symptoms persist, follow-up with your regular doctor. Return to the ER as necessary. Prescriptions: New meclizine 25 mg tablet 25 mg PO Q6H PRN (Reason: dizziness) Qty: 20 RF: 0
--- NOTE | 2020-06-14 20:40 | PC.NURSE ---
Dizziness since thursday. Worse with movement of head from side to side. Patient denies any recent illness, earaches, cough or congestion.
[2020-06-14 20:45] LABS: Troponin I < 0.012 ng/mL (0.01-0.034)
[2020-06-14 20:48] LABS: CKMB % Relative Index 0.3 % (1.5-5.0); Creatine Kinase MB 0.41 ng/mL (<2.37)
[2020-06-14] MEDS: MECLIZINE HCL 12.5 MG TABLET 50 MG PO (20:51)
== END 2020-06-14 22:40 | disposition home or self-care (01) ==
PROVIDERS: Emergency Provider Emergency Medicine
DX: H83.01 Labyrinthitis, right ear (principal); R42 Dizziness and giddiness; R07.9 Chest pain, unspecified
CPT/HCPCS: 36415; 71045; 80053; 82550; 82553; 83690; 84484; 85025; 85610; 85730; 93005; 93010; 99284

== ENCOUNTER 2020-08-03 16:46 | Emergency (ER) | payer OTHER, SELFPAY ==
[2020-08-03 17:12] VITALS: BP 127/76; PULSE 79; RESP 18; TEMP 36.3; O2SAT 99; BMI 40.7
[2020-08-03 18:08] LABS: Add Manual Diff / Slide Review NO; Basophils Absolute Auto 100 /uL (0-100); Basophils Percent Auto 0.7 % (0-2); Eosinophils Absolute Auto 100 /uL (0-450); Eosinophils Percent Auto 1.8 % (2-4); Hematocrit 37.7 % (36-46); Hemoglobin 12.5 g/dL (12.0-16.0); Lymphocytes Absolute Auto 1800 /uL (1100-4500); Lymphocytes Percent Auto 26.2 % (25-40); Mean Corpuscular HGB Conc 33.2 % (30-36); Mean Corpuscular Volume 81.4 fL (80-100); Monocytes Absolute Auto 500 /uL (0-900); Monocytes Percent Auto 6.5 % (3-14); Neutrophils Absolute Auto 4600 /uL (1500-7000); Neutrophils Percent Auto 64.8 % (50-75); Platelet Count 186 X10^3/uL (150-400); Red Blood Cell Count 4.63 X10^6/uL (4.0-5.2); Red Cell Distribution Width 13.3 % (11.6-14.8)
--- NOTE | 2020-08-03 18:09 | ED.FEMALEGU ---
HPI - Female Genitourinary General Chief complaint: Urogenital-Female Stated complaint: UTI Time Seen by Provider: 08/03/20 18:04 Source: patient Mode of arrival: Ambulatory Limitations: no limitations History of Present Illness HPI Narrative: The patient developed dysuria yesterday. She has mild suprapubic tenderness. She has no hematuria. She is not . She also complains of mid back pain. She has no fever chills, no nausea vomiting. She has no history of recurrent UTI. She has no history of pyelonephritis. Related Data Previous Rx's Medication Instructions Recorded meclizine 25 mg PO Q6H PRN #20 tab 06/14/20 sulfamethoxazole-trimethoprim 1 tab PO BID 7 Days #14 tab 08/03/20 Allergies Allergy/AdvReac Type Severity Reaction Status Date / Time Penicillins Allergy Anaphylaxis Verified 08/03/20 17:12 Review of Systems Constitutional Constitutional: Denies fever(s) and Denies headache(s) Eyes Eyes: Denies change in vision ENT Ears, Nose, Mouth, and Throat: Denies headache(s) and Denies sore throat Cardiovascular Cardiovascular: Denies chest pain, Denies rapid heart rate and Denies dyspnea Respiratory Respiratory: Denies cough, Denies dyspnea and Denies wheezing Gastrointestinal Gastrointestinal: Reports as per HPI Genitourinary Genitourinary: Reports dysuria and Reports dysuria Genitourinary: Reports dysuria and Reports dysuria Musculoskeletal Musculoskeletal: Reports back pain Integumentary/Breasts Skin/Breast: Denies rash Neurologic Neurologic: Denies headache(s) Allergic/Immunologic Allergic/Immunologic: Denies wheezing Patient History Medical History depression Single delivery by alcohol intake frequency: holidays/special occasions only Substance Use Type: does not use Exam Initial Vital Signs Initial Vital Signs: Vital Signs Temperature 97.3 F L 08/03/20 17:12 Pulse Rate 79 08/03/20 17:12 Respiratory Rate 18 08/03/20 17:12 Blood Pressure 127/76 08/03/20 17:12 Pulse Oximetry 99 08/03/20 17:12 Const General: healthy appearing, comfortable and No ill appearing Resp Effort & Inspection: normal respiratory effort and able to speak in complete sentences Auscultation: clear to auscultation bilaterally, no rales, no rhonchi and no wheezes Cardio Rate: regular rate Rhythm: regular rhythm Heart Sounds: no click, no gallops, no murmurs and no rubs Pulses: normal peripheral pulses GI Inspection: non-distended Palpation: soft, no hepatosplenomegaly, No guarding and No tender Auscultation: normal bowel sounds General: No CVA tenderness Back/Spine/Pelvis Back: back tenderness (Tenderness in the upper lumbar spine. No CVAT.) Neuro General: patient alert, patient oriented x3, gait normal and no focal motor deficits Speech: speech normal Course Course Course Narrative: The patient has an uncomplicated UTI. She is given Pyridium. She is discharged on a 7 day course of Septra DS. Orders Ordered: Discontinued Medications Sodium Chloride (Normal Saline 0.9%) 1,000 mls @ 1,000 mls/hr IV BOLUS ONE Stop: 08/03/20 19:05 Last Infusion: 08/03/20 19:12 Dose: 0 mls/hr Documented by: Admin: 08/03/20 18:12 Dose: 1,000 mls/hr Documented by: JANI Phenazopyridine HCl (Phenazopyridine 100 Mg Tablet) 200 mg PO NOW ONE Stop: 08/03/20 19:02 Last Admin: 08/03/20 19:20 Dose: 200 mg Documented by: JANI Trimethoprim/Sulfamethoxazole (Trimeth/Sulfa 160/800 (Ds) Tablet) 1 tab PO NOW ONE Stop: 08/03/20 19:02 Last Admin: 08/03/20 19:20 Dose: 1 tab Documented by: JANI Vital Signs Vital signs: Vital Signs - 8 hr 08/03/20 17:12 Temperature 97.3 F L Pulse Rate 79 Respiratory Rate 18 Blood Pressure 127/76 Pulse Oximetry 99 MDM - Female Genitourinary Lab Data Result diagrams: 08/03/20 18:01 08/03/20 18:01 Labs: Lab Results 08/03/20 08/03/20 08/03/20 Range/Units 17:17 18:01 18:01 WBC 7.0 (4.5-11.0) X10^3/uL RBC 4.63 (4.0-5.2) X10^6/uL Hgb 12.5 (12.0-16.0) g/dL Hct 37.7 (36-46) % MCV 81.4 (80-100) fL MCH 27.0 (26-34) PG MCHC 33.2 (30-36) % RDW 13.3 (11.6-14.8) % Plt Count 186 (150-400) X10^3/uL Neut % (Auto) 64.8 (50-75) % Lymph % (Auto) 26.2 (25-40) % [place] % (Auto) 6.5 (3-14) % Eos % (Auto) 1.8 L (2-4) % Baso % (Auto) 0.7 (0-2) % Neut # (Auto) 4600 (7918-7392) /uL Lymph # (Auto) 1800 (9200-3943) /uL [place] # (Auto) 500 (0-900) /uL Eos # (Auto) 100 (0-450) /uL Baso # (Auto) 100 (0-100) /uL Sodium 140 (137-145) mmol/L Potassium 4.1 (3.4-5.1) mmol/L Chloride 106 (98-107) mmol/L Carbon Dioxide 26 (22-32) mmol/L BUN 15 (7-17) mg/dL Creatinine 0.74 (0.52-1.04) mg/dL Estimated GFR > 60.0 (>60) mL/min BUN/Creatinine Ratio 20.3 (6-22) Glucose 107 H (70-100) mg/dL Calcium 9.3 (8.4-10.2) mg/dL Total Bilirubin 0.2 (0.2-1.3) mg/dL AST 25 (14-36) IU/L ALT 19 (<35) IU/L Alkaline Phosphatase 64 (38-126) U/L Total Protein 7.0 (6.3-8.2) g/dL Albumin 4.2 (3.5-5.0) g/dL Globulin 2.8 (1.7-4.1) g/dL Albumin/Globulin Ratio 1.5 (1.0-2.8) Lipase 133 (23-300) U/L Urine RBC 5-10/hpf H (0-5/HPF) Urine WBC 5-10/hpf H (0-5/HPF) Ur Squamous Epith Cells 1-5 /hpf (0-5/HPF) Urine Bacteria Occasional (0-1) (None) Ur Culture Indicated? Specimen cultured Point of Care Testing Test Results Negative Urine Dip Bedside Urine Glucose Negative Bedside Urine Bilirubin - Negative Bedside Urine Ketone - Negative Urine Specific [place] 1.020 Bedside Urine Occult Blood +++ Bedside Urine pH 6.5 Bedside Urine Protein - Negative Bedside Urine Urobilinogen - Negative Bedside Urine Nitrite + Positive Bedside Urine Leukocytes - Negative Esterase Discharge Plan Departure Patient Disposition: Home Clinical Impression: Urinary tract infection Qualifiers: Urinary tract infection type: acute cystitis Hematuria presence: without hematuria Qualified Code(s): N30.00 - Acute cystitis without hematuria Instructions: DI for Urinary Tract Infection (UTI) Activity Restrictions/Additional Instructions: Septra DS 2 times daily for 7 days. Be sure you are drinking plenty of fluids at all times. Return the ER for increasing symptoms, especially return if you develop fever. Follow-up with your doctor if you have ongoing concerns. Prescriptions: New sulfamethoxazole-trimethoprim 800-160 mg tablet 1 tab PO BID 7 Days Qty: 14 RF: 0 No Action meclizine 25 mg tablet 25 mg PO Q6H PRN (Reason: dizziness) Qty: 20 RF: 0 Referrals: Eric Garibay DO [Primary Care Provider] -
[2020-08-03] MEDS: SODIUM CHLORIDE 0.9% 1,000 ML 1000 ML IV (18:12)
[2020-08-03 18:21] LABS: Alanine Aminotransferase 19 IU/L (<35); Albumin 4.2 g/dL (3.5-5.0); Albumin Globulin Ratio 1.5 (1.0-2.8); Alkaline Phosphatase 64 U/L (38-126); Aspartate Aminotransferase 25 IU/L (14-36); BUN Creatinine Ratio 20.3 (6-22); Bilirubin Total 0.2 mg/dL (0.2-1.3); Blood Urea Nitrogen 15 mg/dL (7-17); Calcium 9.3 mg/dL (8.4-10.2); Carbon Dioxide 26 mmol/L (22-32); Chloride 106 mmol/L (98-107); Estimated Glomerular Filt Rate > 60.0 mL/min (>60); Globulin 2.8 g/dL (1.7-4.1); Glucose 107 mg/dL (70-100); HEMOLYSIS 16 (0-50); Lipase 133 U/L (23-300); Potassium 4.1 mmol/L (3.4-5.1); Sodium 140 mmol/L (137-145)
[2020-08-03 18:21] LABS: RBC Urine 5-10/HPF (0-5/HPF); Squamous Epithelial Cell Urine 1-5 /HPF (0-5/HPF); WBC Urine 5-10/HPF (0-5/HPF)
[2020-08-03 18:22] LABS: Bacteria Urine Occasional (0-1)
[2020-08-03 18:23] LABS: Culture Indicated Urine Specimen Cultured
[2020-08-03] MEDS: TRIMETH/SULFA 160/800 (DS) TABLET 1 TAB PO (19:20)
[2020-08-03] MEDS: PHENAZOPYRIDINE 100 MG TABLET 200 MG PO (19:20)
[2020-08-03 19:29] VITALS: BP 131/83; PULSE 75; RESP 20; O2SAT 100
== END 2020-08-03 19:30 | disposition home or self-care (01) ==
PROVIDERS: Emergency Medicine; Emergency Provider Emergency Medicine; PCP Student in an Organized Health Care Education/Training Program
DX: N30.00 Acute cystitis without hematuria (principal)
CPT/HCPCS: 80053; 81003; 81015; 81025; 83690; 85025; 87077; 87086; 87186; 96360; 99284